=== PATIENT | female | born 1965 | race Caucasian/White ===

== ENCOUNTER 2019-11-14 08:30 | Emergency (ER) | payer OTHER ==
[~2019-11-14] VITALS: Ht 152.4 cm; Wt 52.2 kg
== END 2019-11-14 10:18 | disposition home or self-care (01) ==
LOC: ER 08:30
DX: J06.9 Acute upper respiratory infection, unspecified (principal)

== ENCOUNTER 2020-02-24 10:34 | Emergency (ER) | payer OTHER ==
[~2020-02-24] VITALS: Ht 152.4 cm; Wt 52.2 kg
== END 2020-02-24 12:15 | disposition home or self-care (01) ==
LOC: ER 10:34
DX: S61.031A Puncture wound without foreign body of right thumb without damage to nail, initial encounter (principal); W46.1XXA Contact with contaminated hypodermic needle, initial encounter; Y93.89 Activity, other specified; Y92.230 Patient room in hospital as the place of occurrence of the external cause; Y99.8 Other external cause status

== ENCOUNTER 2020-05-14 08:00 | Outpatient (CLI) | payer OTHER | END 2020-05-14 15:00 | disposition home or self-care (01) | LOC: PPH VACUNA 08:00 | DX: Z23 Encounter for immunization (principal) ==

== ENCOUNTER 2020-08-10 12:55 | Emergency (ER) | payer OTHER ==
[~2020-08-10] VITALS: Ht 152.4 cm; Wt 52.6 kg
== END 2020-08-10 14:30 | disposition home or self-care (01) ==
LOC: ER 12:55
DX: M25.551 Pain in right hip (principal); M25.552 Pain in left hip

== ENCOUNTER 2020-08-20 15:48 | Emergency (ER) | payer OTHER ==
[~2020-08-20] VITALS: Ht 152.4 cm; Wt 52.2 kg
[2020-08-20] MEDS ORDERED: VOLTAREN-XR100 MG PO (16:30)
[2020-08-20] MEDS ORDERED: ORPHENADRINE C100 MG PO (16:30)
== END 2020-08-20 17:08 ==
LOC: ER 15:48
DX: M25.551 Pain in right hip (principal); M65.28 Calcific tendinitis, other site

== ENCOUNTER 2021-05-27 08:00 | Outpatient (CLI) | payer OTHER ==
[~2021-05-27 08:00] MED LIST: ORPHENADRINE C100 MG PO; VOLTAREN-XR100 MG PO
== END 2021-05-27 08:30 | disposition home or self-care (01) ==
LOC: PPH VACUNA 08:00
PROVIDERS: ATTEND Emergency Medicine Pediatric Emergency Medicine
DX: Z23 Encounter for immunization (principal)

== ENCOUNTER 2021-08-24 09:27 | Emergency (ER) | payer OTHER ==
[~2021-08-24] VITALS: Ht 152.4 cm; Wt 52.2 kg
== END 2021-08-24 12:34 | disposition home or self-care (01) ==
LOC: ER 09:27
DX: R53.81 Other malaise (principal); Z20.822 Contact with and (suspected) exposure to COVID-19